=== PATIENT | female | born 1980 | race Caucasian/White ===

== ENCOUNTER 2023-10-28 16:57 | Outpatient (CLI) | payer BC, SELFPAY | END 2023-10-28 16:58 | disposition home or self-care (01) | LOC: NFLDREF 10-29 12:36 | PROVIDERS: PCP Family Medicine; Referring Provider Family Medicine; Visit Provider Physician Assistant | DX: N34.3 Urethral syndrome, unspecified (principal); N39.0 Urinary tract infection, site not specified | CPT/HCPCS: 87086 ==

== ENCOUNTER 2023-11-03 12:53 | Outpatient (CLI) | payer BC, SELFPAY | END 2023-11-03 12:54 | disposition home or self-care (01) | PROVIDERS: PCP Family Medicine; Visit Provider Physician Assistant | DX: Z01.419 Encounter for gynecological examination (general) (routine) without abnormal findings (principal); Z13.6 Encounter for screening for cardiovascular disorders; Z13.1 Encounter for screening for diabetes mellitus; Z13.29 Encounter for screening for other suspected endocrine disorder | CPT/HCPCS: 80061; 82947; 84443 ==

== ENCOUNTER 2023-12-24 19:28 | Outpatient (CLI) | payer BC, SELFPAY ==
--- NOTE | 2024-07-06 10:08 | W.PM.SLEEP ---
Sleep Study Details Details Interpreting Provider: Mk Date of Sleep Study: 12/24/23 Sleep Study Details: STUDY TYPE:? Home unattended ? BMI:? 31.5 ORDERING PROVIDER:? Mk INDICATION:? Concern about sleep apnea ? SLEEP SUMMARY:? 368.6 minutes monitored RESPIRATORY SUMMARY:? AHI 3.1 Low oxygen 80 61.3% of study oxygen less than 90% Snoring 8.9% PERIODIC LIMB MOVEMENTS OF SLEEP:? Not recorded CARDIAC:? Range 58-81, mean 66 IMPRESSION:? This study does not demonstrate clinically significant obstructive sleep apnea. If sleep disorder is strongly suspected an in-lab study is recommended This study does demonstrate significant hypo oxygenation. The repeat overnight oximetry is recommended. RECOMMENDATION: See above
== END 2023-12-24 19:29 | disposition home or self-care (01) ==
LOC: SLEEP 19:29
PROVIDERS: PCP Family Medicine; Visit Provider Otolaryngology
DX: G47.19 Other hypersomnia (principal)
CPT/HCPCS: 95806

== ENCOUNTER 2024-01-20 13:42 | Outpatient (CLI) | payer BC, SELFPAY ==
--- NOTE | 2024-01-20 14:00 | MM_ITS ---
Patient: DARWIN DAVIS Facility:?[facility] Patient ID:?[id number] Site Patient ID:?[id number]. Site :?[id number] Study:?XRay-Breast Bilateral 3D W/CAD-01/20/2024 2:24:34 PM Ordering Physician:Kirby February Final Report: BILATERAL SCREENING MAMMOGRAM WITH COMPUTER-AIDED DETECTION AND TOMOSYNTHESIS TECHNIQUE: CC and MLO views were obtained. These mammographic images have been obtained using full-field digital technique. These mammographic images were interpreted with the benefit of computer-aided detection. Breast Tomosynthesis was used in this interpretation. COMPARISON FILM: 07/29/16, 08/07/16(RT). FINDINGS: The breasts are heterogeneously dense, which may obscure small masses. IMPRESSION: There is no radiographic evidence for malignancy. ASSESSMENT: BI-RADS Category 1: Negative RECOMMENDATION: Routine screening mammogram in 1 year. A lay language report of this examination will be provided to the patient. Jose Gamboa M.D. Diagnostic Radiologist [email or web address] DSM/sp R& Transcribed: 5:44 p.m. SP/Dictated by: Jose Gamboa MD @ 01/21/2024 1:07:00 PM Signed by:?Jose Gamboa MD @01/22/2024 5:40:57 AM (Electronic Signature)
== END 2024-01-20 13:43 | disposition home or self-care (01) ==
LOC: MAMMO 13:42
PROVIDERS: PCP Family Medicine; Visit Provider Physician Assistant
DX: Z12.31 Encounter for screening mammogram for malignant neoplasm of breast (principal); R92.2 Inconclusive mammogram
CPT/HCPCS: 77063; 77067

== ENCOUNTER 2024-10-04 21:27 | Emergency (ER) | payer BC, SELFPAY ==
[2024-10-04 21:31] VITALS: BP 162/102; PULSE 88; RESP 18; TEMP 36.8; O2SAT 99; BMI 32.7
--- NOTE | 2024-10-04 21:56 | ED_ITS ---
HPI - General Adult General Date Seen: 10/04/24 Chief complaint: Ear/Nose/Throat Problem Stated complaint: sinus infection Time Seen by Provider: 10/04/24 21:55 History of Present Illness HPI narrative: 44-year-old female with a past medical history of tinnitus, decreased hearing, anxiety/depression, breast nodules, tobacco use, presenting to the ER today with her for evaluation of left cheek pain and nasal sensitivity. She notes that a couple of days ago she woke up with a painful sensation affecting her left maxilla including all the teeth on her left upper jaw. Subsequently the pain is also moved up into directly into her left cheek adjacent to her left nasal alar. Her entire left cheek is been pain home with past couple of days. She has not had any fevers. She has noted a little bit of drainage from her left nostril. No other sore throat, cough, earache, or right nasal drainage. She has no history of trauma. She has not had any redness or purulent drainage from her eye. Vision is normal. No sore throat. She has not noticed any new swelling of her gums. She is not sure if she has a dental infection or sinus infection. She already has appointment to see her dentist tomorrow. She has been trying to treat her pain with altered doses of a. Acetaminophen, ibuprofen, Excedrin but they were ineffective. She feels like her cheek is now getting a little bit swollen hold her nose. She has not noted any redness, blisters, rash or bruising. She has no history of diabetes, cancer, asthma, immunosuppression. Related Data Previous Rx's ?Medication ?Instructions ?Recorded fluticasone propionate 50 1 spray intranasal BID PRN #16 10/04/24 mcg/actuation nasal grams spray,suspension (Allergy Relief (fluticasone)) Allergies Allergy/AdvReac Type Severity Reaction Status Date / Time No Known Drug Allergies Allergy Verified 10/04/24 21:35 [facility] Medical History (Updated 10/04/24 @ 22:24 by Vijay Douglas MD) Lumbalgia ?M54.50 - Low back pain, unspecified (ICD-10) History of alcohol abuse ?F10.11 - Alcohol abuse, in remission (ICD-10) Anxiety ?F41.9 - Anxiety disorder, unspecified (ICD-10) Depression ?F32.A - Depression, unspecified (ICD-10) Surgical History (Updated 12/03/23 @ 14:35 by Car Martel) No significant past surgical history Family History (Updated 11/03/23 @ 13:20 by Alicia Das PA-C) Mother Breast cancer Father Stroke Alcohol dependence Grandfather High blood pressure Grandmother High blood pressure Social History (Updated 11/03/23 @ 13:21 by Alicia Das PA-C) 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 Exercise: Walking and strength training proximally 4 times a week. Smokes a pack per day. Alcohol use: Quit drinking in November of 2022. What is your current living situation?: I presently have a place to live Problems where you live: no known problems In the past 12 months, utilities in danger of being shut off: no In the past 12 mos, have been you worried that your food would run out before you had money to buy more?: never true In the past 12 mos, the food you bought just didn't last and you didn't have money to buy more?: never true Smoking Status: Current every day smoker What tobacco products do you use: cigarettes Smoking packs per day: 1 Smoking cigarettes per day: 20.0 Years smoked: 30 Smoking pack-years: 30.00 Do you use any of these nicotine containing products: None Second hand tobacco smoke exposure: No How often do you have a drink containing alcohol: never AUDIT-C Alcohol total score: 0 Non-prescribed substance use: denies use How often does anyone, including family, friends and others, physically hurt you : never How often does anyone, including family, friends and others, insult or talk down to you: never How often does anyone, including family, friends and others, threaten you with harm: never How often does anyone, including family, friends and others, scream or curse at you: never Exam Narrative: Exam Narrative: Constitutional: Appears well-developed and well-nourished. Alert. Conversant. Non toxic. HENT: Head: Atraumatic. Nose: She does have a fairly normal right nares. Mucosal surface in the left naris does appear to be more edematous. She has a small amount of yellow green somewhat purulent looking drainage from her left nares. No bloody nose. Ears including Pinna, mastoids, canals, TMs normal bilaterally. Mouth/Throat: Oral mucosa is clear and moist. no trismus. Pharynx normal. Tonsils symmetric. No tonsillar enlargement, erythema, or exudate. Dentition generally looks good. She is status post extraction of some of her mandibular molars. Her maxillary teeth look okay. She has a couple of fillings but no obvious dental caries or cavities. I do not see any gingival erythema. No fluctuance her abscess. No trismus. No submandibular swelling. Tongue and oropharynx are normal. Eyes: Conjunctivae normal. EOM normal. Pupils equal, round, and reactive to light. No scleral icterus. Neck: Normal range of motion. Neck supple. No tracheal deviation present. Cardiovascular: Normal rate, regular rhythm. No gallop. No friction rub. No murmur heard Pulmonary/Chest: Effort normal. No stridor. No respiratory distress. No wheezes. No rales. No rhonchi . Musculoskeletal: RUE: Normal range of motion. No tenderness. No deformity LUE: Normal range of motion. No tenderness. No deformity RLE: Normal range of motion. No edema. No tenderness. No deformity LLE: Normal range of motion. No edema. No tenderness. No deformity Lymph: No cervical adenopathy. Neurological: Alert and oriented to person, place, and time. Normal strength. CN II-VII intact. No sensory deficit. GCS eye subscore is 4. GCS verbal subscore is 5. GCS motor subscore is 6. Normal coordination Skin: Skin is warm and dry. No rash noted. No pallor. Normal capillary refill. Psychiatric: Normal mood. Normal affect. Const: Vital Signs, click to edit/add: Vital Signs - 24 hr 10/04/24 21:31 Temperature 98.3 F Pulse Rate [Pulse Oximeter] 88 Respiratory Rate 18 Blood Pressure [Ri ght Upper Arm] 162/102 H Pulse Oximetry 99 Oxygen Delivery Me thod Room Air Course Vital Signs Vital signs: Initial Vital Signs Temperature 98.3 F 10/04/24 21:31 Temperature Source Temporal Artery Scan 10/04/24 21:31 Pulse Rate 88 10/04/24 21:31 Respiratory Rate 18 10/04/24 21:31 Blood Pressure 162/102 H 10/04/24 21:31 Blood Pressure Mean 122 H 10/04/24 21:31 Blood Pressure Position Sitting 10/04/24 21:31 Pulse Oximetry 99 10/04/24 21:31 Oxygen Delivery Method Room Air 10/04/24 21:31 Vital Signs Temperature 98.3 F 10/04/24 21:31 Pulse Rate 88 10/04/24 21:31 Respiratory Rate 18 10/04/24 21:31 Blood Pressure 162/102 H 10/04/24 21:31 Pulse Oximetry 99 10/04/24 21:31 Oxygen Delivery Method Room Air 10/04/24 21:31 Temperature 98.3 F 10/04/24 21:31 Pulse Rate 88 10/04/24 21:31 Respiratory Rate 18 10/04/24 21:31 Blood Pressure 162/102 H 10/04/24 21:31 Pulse Oximetry 99 10/04/24 21:31 Oxygen Delivery Method Room Air 10/04/24 21:31 Medical Decision Making MDM Narrative Medical decision making narrative: This patient presented with signs and symptoms of left facial pain as well as some drainage from her left nostril. Also some left upper tooth pain. Differential here includes possible dental infection versus sinusitis versus other evolving facial infection. I do not see any evidence for shingles or any redness suggestive facial cellulitis at this point. She is not diabetic or immunosuppressed raise significant concern force serious bony infections or mucormycosis. She has no history of trauma. Clinical exam does not reveal any evidence for any clear a done to genic infection or periapical abscess. She does not have any palpable abscess in her cheeks to suggest a buccal abscess. Nothing that requires drainage here in the ER hospitalization. Certainly symptoms could be sinusitis.. Based on history and exam, I feel the cause of sinusitis is most likely bacterial . Antibiotics are indicated due to severity of symptoms at the onset of illness . Evaluation today did not show signs of intracranial complication of sinusitis, facial cellulitis or fungal sinusitis. Patient has normal mental status, no proptosis, periorbital edema, CN palsy. No immunosuprression. Instymeds prescription for [place] that she can use for additional pain relief since [id number] medications have not been effective for her. Instymeds prescription for Augmentin which would cover potential sinus infection as well as odontogenic infections. Also will send in a prescription for fluticasone nasal spray which she can knot picker cloth at her pharmacy tomorrow. She are has an appointment to see her dentist tomorrow and I recommend that she keep that to make sure we get a thorough assessment of her teeth. follow up with primary care in 3-5 days. Instructions for symptomatic care were given. Discharge Plan Discharge Clinical Impression: Sinusitis, Pain, dental Instructions: Sinusitis (ED), Toothache (ED) Additional Instructions: As we discussed, please follow-up with your dentist tomorrow for recheck to make sure your teeth are okay. We will start you on Augmentin (antibiotics) to treat for potential dental infection or sinus infection. Will also give her prescription for [place] (pain medications) you can use as needed. Use caution with pain killers because they cause dizziness, drowsiness, constipation, and can be addictive. Do not drive for 6 hours after taking [place] I will also give you prescriptions for a nasal spray that can reduce swelling in her nasal cavity Return to the ER right away if you have worsening pain, severe headache, high fever, worsening swelling of your face, or any concerns. Activity Level: No Restrictions Discharge Diet: Regular Prescriptions: New fluticasone propionate [Allergy Relief (fluticasone)] 50 mcg/actuation spray,suspension 1 spray intranasal BID PRNQty: 16 0RF Rx Instructions: administer into each nostril Follow Up/Referrals: David Bazan MD [Primary Care Provider] - Stand Alone Forms: [employer] Info Instructions
== END 2024-10-04 22:57 | disposition home or self-care (01) ==
LOC: ED 22:29
PROVIDERS: Emergency Provider Emergency Medicine; PCP Family Medicine
DX: K08.89 Other specified disorders of teeth and supporting structures (principal); J32.9 Chronic sinusitis, unspecified
CPT/HCPCS: 99282; 99283

== ENCOUNTER 2025-05-23 11:55 | Emergency (ER) | payer BC, SELFPAY ==
[2025-05-23 12:30] VITALS: BP 172/95; PULSE 63; RESP 18; TEMP 36.6; O2SAT 98; BMI 34.5
== END 2025-05-23 13:06 | disposition left against medical advice (07) ==
PROVIDERS: Emergency Provider Family Medicine; PCP Family Medicine
DX: Z53.21 Procedure and treatment not carried out due to patient leaving prior to being seen by health care provider (principal)
CPT/HCPCS: 99281

== ENCOUNTER 2025-07-06 14:45 | Outpatient (RCR) | payer BC, SELFPAY ==
--- NOTE | 2025-06-15 14:42 | PT.OPDN ---
PT [place] [facility] Daily Note PT [facility] Outpatient Daily Note Start: 05/25/25 12:21 Freq: Status: Active Protocol: Document 06/15/25 14:15 CJT (Rec: 06/15/25 14:41 CJT [email or web address]) E-signed By Srinivas Brooks, PT PT OP Daily Progress Note Visit Information Note Type Recert/Progress Note Visit Number 4 Physician Authorized eval and treat Visits Insurance Information Recert Due Date 08/23/25 Insurance Name [employer] Medical Diagnosis M79.2 - neuralgia and neuritis, unspecified Radicular arm pain Treating Diagnosis M54.12 - cervical radiculopathy Referring Maryam Macias Subjective Preferred Name Crystal Subjective Pt feels her symptoms have plateaued. Pt also notes that she has a ROME on the R side of her head. Started at the base of her skull and can feel it all the way up behind the R eye. Pain Comments / - best 5/10 - worst Date of Last 05/23/25 Physician Visit Home Exercise Home Exercise Access Code: [email or web address] Comments URL: [email or web address] Date: 05/25/2025 Prepared by: Srinivas Brooks Exercises - Ulnar Nerve Flossing - 2 x daily - 7 x weekly - 1-2 sets - 10 reps - 2-3 seconds hold - Standing Median Nerve [place] - 2 x daily - 7 x weekly - 1-2 sets - 10 reps - 2-3 seconds hold - Seated Cervical Sidebending Stretch - 1-2 x daily - 7 x weekly - 1 sets - 30 seconds hold - Seated Levator Scapulae Stretch - 1-2 x daily - 7 x weekly - 1 sets - 30 seconds hold - Doorway Pec Stretch at 90 Degrees Abduction - 1-2 x daily - 7 x weekly - 1 sets - 30 seconds hold Objective Functional Test QuickDASH: 34% disability Performed & Score Patient Instructed Yes in Risks/Benefits Manual Therapy Techniques Manual Therapy 18 Minutes (minutes) Manual Therapy STM performed to Right > Left suboccipitals, cervical Techniques paraspinals, scalenes, SCM, upper trapezius, levator scapulae, pectoralis minor, pectoralis major to reduce tissue tension and improve extensibility. Gentle manual distraction of cervical spine performed to further reduce tissue tension. Manual stretching for suboccipitals Mechanical Traction Mechanical Traction 21 Minutes (minutes) Mechanical Traction Cervical Traction,Patient Supine,Legs Elevated, Treatment Intermittent Traction,Step Up & Step Down Mechanical Traction 25lbs max draw Comments 20lbs min draw Treatment Minutes Untimed Code 21 Treatment Minutes Timed Code Treatment 39 Minutes Total Treatment Time 60 Billing Units Manual Therapy Units 1 Mechanical Traction 1 Units Assessment/Impression Assessment/ Pt has made fair progress up to this point, but is Impression expressing an interested for imaging and additional treatment to help with her symptoms. Pts numbness in her R arm is distinctly triggered by head position. Pt has been having to lean her head to the L nearly all the time to reduce R arm numbness. I do think that this is likely playing a role in the ROME she has had the past two days. Pt has attended 4 therapy sessions up to this point. I encouraged her to reach out to her referral source, Maryam Nunes ([facility]), following today's treatment session to inquire about an MRI for the cervical spine with hopes of treating nerve root impingement with NACHO. Recommend continued PT services to address deficits and return pt to highest level of function. Plan of Care Physical Therapy STG - To be completed in 2-3 weeks: Goals 1. Pt will report reduction in symptoms by factor of 2 so that she may start her work day with manageable level of numbness/tingling. LTG - To be completed in 4-6 weeks: 1. Pt to be I with HEP so that they may I manage progression of symptoms. 2. Pt will report absence of symptoms with all activities so that she may return to optimal level of function. Daily Plan of Care Continue per POC
== END 2025-09-02 09:56 | disposition home or self-care (01) ==
PROVIDERS: PCP Family Medicine; Visit Provider Physician Assistant
DX: M79.2 Neuralgia and neuritis, unspecified (principal); M79.603 Pain in arm, unspecified; Z51.89 Encounter for other specified aftercare
CPT/HCPCS: 97012; 97110; 97140; 97161